=== PATIENT | female | born 1995 | race Caucasian/White ===

== ENCOUNTER 2020-04-14 02:35 | Emergency (ER) | payer BC ==
[2020-04-14] MEDS ORDERED: Acetaminophen 500 MG Tab PO ONE (02:54)
[2020-04-14 03:30] LABS: BLOOD UREA NITROGEN,BUN 11 mg/dL (7.0-18.0); CHLORIDE,CL 105 mmol/L (98-107); GLUCOSE RANDOM 75 mg/dL (74-106); POTASSIUM,K 3.6 mmol/L (3.5-5.1); SODIUM,NA 139 mmol/L (136-145)
[2020-04-14] MEDS ORDERED: Sodium Chloride 0.9% 1,000 ML IV ONE (04:07)
--- NOTE | 2020-04-14 04:56 | US ---
INDICATION: Bleeding TECHNIQUE: Ultrasound OB pelvis transvaginal. Real time higgins scale imaging of the pelvis was performed. COMPARISON: None FINDINGS: Sonographic imaging demonstrates no evidence of a intrauterine . Complex debris identified in the endometrial canal. The left ovary is visualized and normal. The right ovary is not visualized. No gross right or left adnexal abnormality. Small amount of free fluid in cul-de-sac. IMPRESSION: No evidence of an intrauterine . Complex debris identified in the endometrial canal. Left ovary is visualized and normal. The right ovary is not visualized. Grossly normal right and left adnexa. Small amount of free fluid in the cul-de-sac. Dictated by Malcolm Anguiano MD @ 04/14/2020 4:55:32 AM Dictated by: Malcolm Anguiano MD @ 04/14/2020 04:55:43 (Electronically Signed)
--- NOTE | 2020-04-14 05:39 | EDM.PDOC ---
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 Patient is approximately 12 weeks by history. She is established care with a local S[facility]IOR SALES OPERATIONS ANALYST clinic who informed her that she has been carrying a nonviable since 6 weeks gestation. She is expecting a miscarriage. This evening, she presents the emergency room complaining with a 2 -day history of vaginal bleeding and bilateral lower pelvic pain. She was complaining of significant vaginal bleeding last night, this is since tapered off somewhat. She denies any other hemorrhage such as hemoptysis, hematuria, or rectal bleeding. No other complaints are voiced. Lower Abdomen Pain Score (Numeric/FACES): 2 - Related Data Allergies Allergy/AdvReac Type Severity Reaction Status Date / Time amoxicillin Allergy Hives Verified 04/14/20 04:01 Home Meds: Home Meds . [No Known Home Meds] 04/14/20 [History] Past Medical History SENIOR SALES OPERATIONS ANALYST History: Reports: , Spontaneous Other SENIOR SALES OPERATIONS ANALYST History: x2 previous spontaneous miscarriage - Past Surgical History Female Surgical History: Reports: D&C Social & Family History - Tobacco Use Smoking Status *Q: Never Smoker - Recreational Drug Use Recreational Drug Use: No ED ROS GENERAL - Review of Systems Review Of Systems: See Below Constitutional: Denies: Fever HEENT: Reports: No Symptoms Respiratory: Denies: Shortness of Breath Cardiovascular: Denies: Chest Pain Endocrine: Reports: No Symptoms GI/Abdominal: Reports: Abdominal Pain. Denies: Bloody Stool, Hematemesis, Hematochezia, Nausea, Vomiting : Reports: Other (Vaginal bleeding). Denies: Discharge, Dysuria, Flank Pain, Frequency, Hematuria Musculoskeletal: Reports: No Symptoms Skin: Denies: Pallor Neurological: Reports: No Symptoms Psychiatric: Reports: No Symptoms Hematologic/Lymphatic: Reports: No Symptoms Immunologic: Reports: No Symptoms ED EXAM - Physical Exam Exam: See Below Text/Narrative:: Vital signs reviewed. Nursing notes reviewed. Constitutional: Awake, alert, non-distressed. Head: Normocephalic, atraumatic. Eyes: EOMI, conjunctiva normal, no discharge, no scleral icterus. Ears, Nose, Throat: External ears and ears normal, moist oral mucosa. Cardiovascular: 2+ radial pulse, capillary refill less than 2 seconds. Pulmonary: normal work of breathing, no accessory muscle use. Abdomen/GI: Soft, bilateral low abdominal/pelvic tenderness, nondistended, no guarding or rigidity, no masses. Musculoskeletal: No deformities. Integumentary: Appropriate color for ethnicity, warm, dry, no pallor or jaundice , no rash. Neurologic: Alert, answering questions appropriately, normal speech, no facial droop, moving all extremities well. Psychiatric: Appropriate mood and affect, normal thought process. (Female) Exam: Normal External Exam, Cervical Dilatation (2 cm), Vaginal Bleeding. No: Cervical Discharge, Tissue Present in Cervix/Vagina, Vaginal Discharge Course - Vital Signs Text/Narrative:: On arrival patient is hemodynamically stable, afebrile, well-appearing. IV access was established and labs were sent. CBC shows normal cell lines. Metabolic panel is reassuring. Quantitative beta-hCG is 4645, blood type is A+. Patient was given 1 g of oral Tylenol and 1 L of lactated Ringer's. We pursued a transvaginal OB ultrasound study which did not demonstrate a viable IUP, consistent with my impression of an incomplete in progress. There is no evidence of obvious products of conception noted during my pelvic examination to send to pathology. We initially planned to discharge the patient however she had a near syncopal episode in the restroom while getting ready to go home. We gave her an additional liter of crystalloid and rechecked her hemoglobin, which had decreased slightly from 13.3-11.0. She felt better after resting and receiving additional fluids. Patient is stable discharge home with outpatient obstetrics follow-up in the next few days. Counseled to return to the emergency department medially for worsening bleeding, worsening pain, or any other complaints or concerning symptoms. All questions were answered prior to departure. Discharged in good condition. Last Recorded V/S: Last Vital Signs Temp 36.0 C L 04/14/20 03:56 Pulse 68 04/14/20 07:44 Resp 18 04/14/20 07:44 BP 100/55 L 04/14/20 07:44 Pulse Ox 99 04/14/20 07:44 - Orders/Labs/Meds Orders: Active Orders 24 hr Category Date Time Status Pelvic Exam, Set Up [RC] ASDIRECTED Care 04/14/20 02:54 Active Labs: Laboratory Tests 04/14/20 04/14/20 04/14/20 Range/Units 03:12 03:12 03:12 WBC 10.13 (4.0-11.0) K/uL RBC 4.52 (4.30-5.90) M/uL Hgb 13.3 (12.0-16.0) g/dL Hct 38.7 (36.0-46.0) % MCV 85.6 (80.0-98.0) fL MCH 29.4 (27.0-32.0) pg MCHC 34.4 (31.0-37.0) g/dL RDW Std Deviation 39.2 (28.0-62.0) fl RDW Coeff of Fe 13 (11.0-15.0) % Plt Count 255 (150-400) K/uL MPV 10.20 (7.40-12.00) fL Neut % (Auto) 70.2 (48.0-80.0) % Lymph % (Auto) 19.7 (16.0-40.0) % Boone % (Auto) 8.8 (0.0-15.0) % Eos % (Auto) 0.9 (0.0-7.0) % Baso % (Auto) 0.4 (0.0-1.5) % Neut # (Auto) 7.1 H (1.4-5.7) K/uL Lymph # (Auto) 2.0 (0.6-2.4) K/uL Boone # (Auto) 0.9 H (0.0-0.8) K/uL Eos # (Auto) 0.1 (0.0-0.7) K/uL Baso # (Auto) 0.0 (0.0-0.1) K/uL Nucleated RBC % 0.0 /100WBC Nucleated RBCs # 0 K/uL Sodium 139 (136-145) mmol/L Potassium 3.6 (3.5-5.1) mmol/L Chloride 105 (98-107) mmol/L Carbon Dioxide 26.0 (21.0-32.0) mmol/L BUN 11 (7.0-18.0) mg/dL Creatinine 0.8 (0.6-1.0) mg/dL Est Cr Clr Drug Dosing TNP Estimated GFR (MDRD) > 60.0 ml/min Glucose 75 (74-106) mg/dL Calcium 8.5 (8.5-10.1) mg/dL HCG, Qual POSITIVE H (NEG) HCG, Quant mIU/mL Blood Type 04/14/20 04/14/20 04/14/20 Range/Units 03:12 03:12 06:22 WBC (4.0-11.0) K/uL RBC (4.30-5.90) M/uL Hgb 11.0 L (12.0-16.0) g/dL Hct (36.0-46.0) % MCV (80.0-98.0) fL MCH (27.0-32.0) pg MCHC (31.0-37.0) g/dL RDW Std Deviation (28.0-62.0) fl RDW Coeff of Fe (11.0-15.0) % Plt Count (150-400) K/uL MPV (7.40-12.00) fL Neut % (Auto) (48.0-80.0) % Lymph % (Auto) (16.0-40.0) % Boone % (Auto) (0.0-15.0) % Eos % (Auto) (0.0-7.0) % Baso % (Auto) (0.0-1.5) % Neut # (Auto) (1.4-5.7) K/uL Lymph # (Auto) (0.6-2.4) K/uL Boone # (Auto) (0.0-0.8) K/uL Eos # (Auto) (0.0-0.7) K/uL Baso # (Auto) (0.0-0.1) K/uL Nucleated RBC % /100WBC Nucleated RBCs # K/uL Sodium (136-145) mmol/L Potassium (3.5-5.1) mmol/L Chloride (98-107) mmol/L Carbon Dioxide (21.0-32.0) mmol/L BUN (7.0-18.0) mg/dL Creatinine (0.6-1.0) mg/dL Est Cr Clr Drug Dosing Estimated GFR (MDRD) ml/min Glucose (74-106) mg/dL Calcium (8.5-10.1) mg/dL HCG, Qual (NEG) HCG, Quant 4645.0 mIU/mL Blood Type A POSITIVE Meds: Medications Discontinued Medications Generic Name Dose Route Start Last Admin Trade Name Enedina PRN Reason Stop Dose Admin Acetaminophen 1,000 mg 04/14/20 02:54 04/14/20 03:30 Tylenol Extra Strength PO 04/14/20 02:55 1,000 mg ONETIME ONE Administration Lactated Ringer's 1,000 mls @ 1,000 mls/hr 04/14/20 06:15 04/14/20 06:15 Ringers, Lactated IV 04/14/20 07:14 1,000 mls/hr .BOLUS ONE Administration Departure - Departure Time of Disposition: 05:36 Disposition: Home, Self-Care 01 Condition: Good Clinical Impression: Incomplete - Discharge Information *PRESCRIPTION DRUG MONITORING PROGRAM REVIEWED*: Not Applicable *COPY OF PRESCRIPTION DRUG MONITORING REPORT IN PATIENT LIONEL: Not Applicable Instructions: Incomplete Miscarriage Referrals: [facility] [Provider Group] - 1 Week (For follow-up of miscarriage.) Forms: ED Department Discharge Additional Instructions: Please be sure to follow-up with your SENIOR SALES OPERATIONS ANALYST clinic within the next few days. Return to the emergency department immediately if you are concerned with the amount of bleeding you are experiencing or if your pain worsens significantly. You can take [id number] acetaminophen for pain. Ibuprofen or naproxen may increase the amount of bleeding and make it harder to stop bleeding. The following information is given to patients seen in the emergency department who are being discharged to home. This information is to outline your options for follow-up care. We provide all patients seen in our emergency department with a follow-up referral. The need for follow-up, as well as the timing and circumstances, are variable depending upon the specifics of your emergency department visit. If you don't have a primary care physician on staff, we will provide you with a referral. We always advise you to contact your personal physician following an emergency department visit to inform them of the circumstance of the visit and for follow-up with them and/or the need for any referrals to a consulting specialist. The emergency department will also refer you to a specialist when appropriate. This referral assures that you have the opportunity for follow-up care with a specialist. All of these measure are taken in an effort to provide you with optimal care, which includes your follow-up. Under all circumstances we always encourage you to contact your private physician who remains a resource for coordinating your care. When calling for follow-up care, please make the office aware that this follow-up is from your recent emergency room visit. If for any reason you are refused follow-up, please contact the [facility] Emergency Department at and asked to speak to the emergency department charge nurse. If you do not have a primary care physician that is caring for you, you can contact these clinics below to set up an appointment to establish care: [facility] - Primary Care [address] [place] [id number] [address] [address] Sepsis Event Note - Evaluation Sepsis Screening Result: No Definite Risk - Focused Exam Vital Signs: Vital Signs Temp Pulse Resp BP Pulse Ox 04/14/20 07:44 68 18 100/55 L 99 04/14/20 06:48 62 18 106/52 L 100 04/14/20 06:05 81 18 116/68 96 04/14/20 03:56 36.0 C L 79 16 127/61 98 04/14/20 03:55 69 18 115/61 98 Date Exam was Performed: 04/14/20 Time Exam was Performed: 08:07 - My Orders Last 24 Hours: My Active Orders 04/14/20 02:54 Pelvic Exam, Set Up [RC] ASDIRECTED - Assessment/Plan Last 24 Hours: My Active Orders 04/14/20 02:54 Pelvic Exam, Set Up [RC] ASDIRECTED
[2020-04-14] MEDS ORDERED: Lactated Ringers 1,000 ML IV ONE (06:15)
== END 2020-04-14 07:43 | disposition home or self-care (01) ==
LOC: MW.ED 02:35
DX: O03.4 Incomplete spontaneous abortion without complication (principal); Z88.1 Allergy status to other antibiotic agents
CPT/HCPCS: 36415; 76817; 80048; 84702; 84703; 85018; 85025; 86900; 86901; 96360; 96361; 99285; A9270; J7030; J7120; 99282